=== PATIENT | female | born 1995 | race Caucasian/White ===

== ENCOUNTER → 2017-02-09 | Outpatient (CLI) | payer SELFPAY ==
--- NOTE | 2017-02-09 16:58 | RADIOLOGY REPORT (SQ) ---
EXAM DESCRIPTION: U/S FG0NOAX TRNABD 1GES W/ODOP COMPLETED DATE/TIME: 02/09/2017 4:23 pm REASON FOR STUDY: SIZE AND DATES Z34.01 ENCNTR FOR SUPRVSN OF NORMAL FIRST PREG, FIRST TRIMES COMPARISON: None. TECHNIQUE: Transabdominal static and realtime grayscale images acquired of the pelvis. Additional se lected spectral and color Doppler images recorded. All images stored on PACs. bHCG: Not applicable. LIMITATIONS: None. FINDINGS: FETUS: Living intrauterine . EGA: 11 week 6 day. JOSUE: 08/25/2017. FHR: 160 beats per minute. SUBCHORIONIC BLEED: No. SIZE OF BLEED: Not applicable. UTERUS: No masses. No anomalies. CERVICAL LENGTH: 3.0 cm. Closed. RIGHT ADNEXA: Ovary not identified. No adnexal free fluid. No adnexal masses. LEFT ADNEXA: Ovary not identified. No adnexal free fluid. No adnexal masses. FREE FLUID: None. OTHER: No other significant finding. IMPRESSION: LIVING INTRAUTERINE . EGA 11 WEEK 6 DAY. Trimester of : First - 0 to 13 weeks. TECHNICAL DOCUMENTATION: JOB ID: [id number] [employer]- All Rights Reserved
== END ==
LOC: RAD 15:48
PROVIDERS: ATTEND Nurse Practitioner Women's Health
DX: Z34.01 Encounter for supervision of normal first pregnancy, first trimester (principal)
CPT/HCPCS: 76801

== ENCOUNTER 2017-08-09 15:07 | Inpatient (IN) | payer BC, MEDICAID ==
[2017-09-03] MEDS ORDERED: DINOPROSTONE 10 MG VAGINAL INSERT.SR PV PRN (18:43)
[2017-09-03] MEDS ORDERED: RINGERS SOLUTION,LACTATED 1,000 ML IV PRN (18:43)
[2017-09-03] MEDS ORDERED: DINOPROSTONE 10 MG VAGINAL INSERT.SR ONE (19:09)
[2017-09-03 19:22] LABS: ABSOLUTE EOSINOPHILS # (AUTO) 0.1 10^3/uL (0.0-0.6); ABSOLUTE LYMPHOCYTES (AUTO) 1.7 10^3/uL (0.5-4.7); ABSOLUTE MONOCYTES (AUTO) 0.8 10^3/uL (0.1-1.4); ABSOLUTE NEUT (AUTO) 8.1 10^3/uL (1.7-8.2); BASOPHILS % (AUTO) 0.2 % (0-2); EOSINOPHILS % (AUTO) 1.2 % (0-6); HEMATOCRIT 30.6 % (36.0-47.0); HEMOGLOBIN 10.6 g/dL (12.0-15.5); LYMPHOCYTES % (AUTO) 15.8 % (13-45); MEAN CORPUSCULAR HGB CONC 34.7 g/dL (32.0-36.0); MEAN CORPUSCULAR VOLUME 87 fl (80-97); MONOCYTES % (AUTO) 7.5 % (3-13); PLATELET COUNT 309 10^3/uL (150-450); RED BLOOD COUNT 3.54 10^6/uL (3.72-5.28); RED CELL DISTRIBUTION WIDTH 14.6 % (11.5-14.0); SEGMENTED NEUTROPHILS % (AUTO) 75.3 % (42-78); TOTAL CELLS COUNTED % (AUTO) 100 %; WHITE BLOOD COUNT 10.8 10^3/uL (4.0-10.5)
[2017-09-03 19:25] LABS: APPEARANCE,URINE SLIGHTLY-CLOUDY; BILIRUBIN,URINE NEGATIVE (NEGATIVE); COLOR,URINE YELLOW; GLUCOSE, URINE NEGATIVE (NEGATIVE); KETONES,URINE NEGATIVE (NEGATIVE); LEUKOCYTE ESTERASE,URINE MODERATE (NEGATIVE); NITRITE,URINE NEGATIVE (NEGATIVE); PROTEIN,URINE NEGATIVE (NEGATIVE); URINE SPECIFIC GRAVITY 1.009; UROBILINOGEN,URINE NEGATIVE mg/dL (<2.0)
[2017-09-03 19:39] LABS: URINE AMPHETAMINES SCREEN NEGATIVE; URINE BARBITURATES SCREEN NEGATIVE; URINE BENZODIAZEPINES SCREEN NEGATIVE; URINE COCAINE SCREEN NEGATIVE; URINE MARIJUANA (THC) SCREEN NEGATIVE; URINE METHADONE SCREEN NEGATIVE; URINE PHENCYCLIDINE SCREEN NEGATIVE
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
[2017-09-04] MEDS ORDERED: OXYTOCIN/NORMAL SALINE 40 UNIT/2,000 ML RTUINJ ONE (08:24)
[2017-09-04] MEDS ORDERED: LIDOCAINE 1% INJ-PF (10 MG/ML) 30 ML SDV ONE (08:24)
[2017-09-04] MEDS ORDERED: MISOPROSTOL 0.2 MG TABLET ONE ×2 (08:24→21:36)
--- NOTE | 2017-09-04 08:29 | L&D Progress Notes ---
PROGRESS NOTES Datetime Report Generated by CPN: 09/04/2017 08:28 PROGRESS NOTE Impression: Reassuring Heart Rate Plan: Continue Present Management Informed Consent Obtained: Vaginal Delivery Vital Signs : Reviewed; Within Normal Limits Comment: Sitting up in bed, hsb at BS, plans to breastfeed and get epidural, Cat 1 strip, no uc's, POC discussed. Will start Pitocin, 41+2 VAGINAL EXAM Dilatation: 0 Effacement: 0 Station: -3 MEMBRANES Pooling: Negative Membranes: Intact FETUS A FHR - Baseline: 125 Monitoring: External US Variability: Moderate 6-25bpm Accelerations: 10X10 Decelerations: None : 41.2 Estimated Weight (gm): 3800 Presentation: Vertex SIGNATURE SIGNATURE: ,[id number];,[id number];,[id number] SIGNATURE: ,[id number];,[id number] SIGNATURE: [id number] Assignment: Marcus Mcbride MD Signature: with User ID: [email or web address] : with User ID: [email or web address]
--- NOTE | 2017-09-04 13:15 | L&D Progress Notes ---
PROGRESS NOTES Datetime Report Generated by CPN: 09/04/2017 13:15 PROGRESS NOTE Impression: Reassuring Heart Rate Plan: Continue Present Management; Induction Informed Consent Obtained: Vaginal Delivery Vital Signs : Reviewed; Within Normal Limits Comment: Cat 1 strip, not feeling uc's, Continue Pitocin FETUS C SIGNATURE: 13,[id number];14,[id number];10,[id number] Assignment: Marcus Mcbride MD Signature: with User ID: [email or web address] : with User ID: [email or web address]
--- NOTE | 2017-09-04 14:44 | L&D Progress Notes ---
PROGRESS NOTES Datetime Report Generated by CPN: 09/04/2017 14:44 PROGRESS NOTE Impression: Normal Progression of Labor; Reassuring Heart Rate Procedures: Artificial ROM; Sterile Vag Exam Plan: Continue Present Management; Induction Informed Consent Obtained: Vaginal Delivery Vital Signs : Reviewed; Within Normal Limits Comment: VE 4/80/vtx/0, AROM clear fluid, Cat 1 strip, tolerating labor well MEMBRANES Membranes: Ruptured Amniotic Fluid Color: Clear FETUS A Decelerations: None FETUS C SIGNATURE: 10,[id number];14,[id number];13,[id number] Assignment: Marcus Mcbride MD Signature: with User ID: Andrea : with User ID: [email or web address]
[2017-09-04] MEDS ORDERED: EPHEDRINE SULFATE INJ 50 MG/1 ML AMPULE ONE (15:55)
[2017-09-04] MEDS ORDERED: BUPIVACAINE HCL 0.25 % INJ/PF (2.5 MG/1 ML) 30 ML VIAL ONE (15:56)
[2017-09-04] MEDS ORDERED: FENTANYL/BUPIVACAINE/NS/PF 200 MCG/100 ML RTUINJ EPI ONE (15:56)
--- NOTE | 2017-09-04 16:53 | L&D Progress Notes ---
PROGRESS NOTES Datetime Report Generated by CPN: 09/04/2017 16:53 PROGRESS NOTE Comment: requesting epidural, Fluid bolus and Dr. Cheken here, Cat 1 strip FETUS C SIGNATURE: 13,[id number];14,[id number];10,[id number] Assignment: Marcus Mcbride MD Signature: with User ID: [email or web address] : with User ID: [email or web address]
[2017-09-04] MEDS ORDERED: GLYCERIN/WITCH HAZEL LEAF 1 EACH MED..PAD TP PRN (20:26)
[2017-09-04] MEDS ORDERED: PROMETHAZINE HCL 25 MG SUPP.RECT PR PRN (20:26)
[2017-09-04] MEDS ORDERED: PROMETHAZINE HCL INJ 25 MG/1 ML VIAL IV PRN (20:26)
[2017-09-04] MEDS ORDERED: DIPH/PERTUSS(ACELL)/TETANUS VAC/PF 0.5 ML SYR (>=10YO) IM PRN (20:26)
[2017-09-04] MEDS ORDERED: DIBUCAINE 1% OINTMENT 28 GM TP PRN (20:26)
[2017-09-04] MEDS ORDERED: PROMETHAZINE HCL 25 MG TABLET PO PRN (20:26)
[2017-09-04] MEDS ORDERED: DIPHENHYDRAMINE HCL 25 MG CAPSULE PO PRN (20:26)
[2017-09-04] MEDS ORDERED: OXYTOCIN/NORMAL SALINE 20 UNIT/1,000 ML RTUINJ IV PRN (20:26)
[2017-09-04] MEDS ORDERED: ZOLPIDEM TARTRATE 5 MG TABLET PO PRN (20:26)
[2017-09-04] MEDS ORDERED: MEASLES,MUMPS&RUBELLA VACC/PF 0.5 ML VIAL SUBCUT PRN (20:26)
[2017-09-04] MEDS ORDERED: PSEUDOEPHEDRINE HCL 30 MG TABLET PO PRN (20:26)
[2017-09-04] MEDS ORDERED: ACETAMINOPHEN WITH CODEINE #3 TABLET PO PRN (20:26)
[2017-09-04] MEDS ORDERED: BENZOCAINE/MENTHOL AEROSOL SPRAY 56 ML TOP PRN (20:26)
[2017-09-04] MEDS ORDERED: ACETAMINOPHEN 650 MG SUPP.RECT PR PRN (20:26)
[2017-09-04] MEDS ORDERED: NA PHOS,M-B/NA PHOS,DI-BA (ADULT) 133 ML ENEMA PR PRN (20:26)
[2017-09-04] MEDS ORDERED: MAGNESIUM HYDROXIDE SUSP 30 ML UDCUP PO PRN (20:26)
--- NOTE | 2017-09-04 21:47 | Warning Signs in Babies ---
VOD Warning Signs Datetime Report Generated by [facility]: 09/04/2017 21:47 VOD#608 -Warning Signs in Babies: Needs to be viewed. (08/28/2017 16:04:Irwin Cardoso)
[2017-09-05] MEDS: IBUPROFEN 800 MG TABLET PO SCH ×4 (00:44→22:10)
[2017-09-05] MEDS: FAMOTIDINE 20 MG TABLET PO SCH ×3 (00:45→22:10)
[2017-09-05 07:31] LABS: HEMATOCRIT 26.9 % (36.0-47.0); HEMOGLOBIN 9.1 g/dL (12.0-15.5); MEAN CORPUSCULAR HEMOGLOBIN 29.5 pg (27.0-33.4); MEAN CORPUSCULAR HGB CONC 33.7 g/dL (32.0-36.0); MEAN CORPUSCULAR VOLUME 87 fl (80-97); PLATELET COUNT 239 10^3/uL (150-450); RED BLOOD COUNT 3.08 10^6/uL (3.72-5.28); RED CELL DISTRIBUTION WIDTH 14.8 % (11.5-14.0); WHITE BLOOD COUNT 12.5 10^3/uL (4.0-10.5)
[2017-09-05] MEDS: FERROUS SULFATE 325 MG TABLET PO SCH ×2 (10:24→17:51)
[2017-09-05] MEDS: PRENATAL VITAMIN W DHA CAPSULE PO SCH (10:24)
[2017-09-05] MEDS: SENNOSIDES/DOCUSATE 8.6-50 MG 1 EACH TABLET PO SCH (10:24)
[2017-09-05] MEDS: DOCUSATE SODIUM 100 MG CAPSULE PO SCH ×2 (10:24→17:51)
--- NOTE | 2017-09-05 12:19 | PDOC PROGRESS REPORT ---
Subjective-OB Progress Note for:: 09/05/17 Subjective: tolerating diet, bleeding slowing, pain controlled with current meds. denies needs. Physical Exam (OB) Vital Signs: Temp Pulse Resp BP Pulse Ox 98.3 F 67 20 101/52 L 98 09/05/17 10:16 09/05/17 10:16 09/05/17 10:16 09/05/17 07:49 09/05/17 10:16 Intake & Output 09/04/17 09/05/17 09/06/17 06:59 06:59 06:59 Weight 78.8 kg - Abdomen Description: Soft, Round Hernia Present: No Fundal Description: Firm, Midline Fundal Height: u/u - u/2 - Abdominal Tenderness: Nontender - Extremities Lower extremities: Shubham's sign - neg Ankle: Normal, Nontender Objective-Diagnostic Laboratory: 09/05/17 06:55 09/05/17 06:55 WBC 12.5 H RBC 3.08 L Hgb 9.1 L Hct 26.9 L MCV 87 MCH 29.5 MCHC 33.7 RDW 14.8 H Plt Count 239 Assessment and Plan(PN) - Assessment and Plan (1) Vaginal delivery Is this a current diagnosis for this admission?: Yes - Time Spent with Patient Time with patient: Less than 15 minutes Medications reviewed and adjusted accordingly: Yes - Disposition Anticipated Discharge: Home Within: within 24 hours
[2017-09-06] MEDS: IBUPROFEN 800 MG TABLET PO SCH (05:59)
[2017-09-06] MEDS: FERROUS SULFATE 325 MG TABLET PO SCH (09:11)
[2017-09-06] MEDS: PRENATAL VITAMIN W DHA CAPSULE PO SCH (09:11)
[2017-09-06] MEDS: DOCUSATE SODIUM 100 MG CAPSULE PO SCH (09:11)
[2017-09-06] MEDS: FAMOTIDINE 20 MG TABLET PO SCH (09:12)
[2017-09-06] MEDS: SENNOSIDES/DOCUSATE 8.6-50 MG 1 EACH TABLET PO SCH (09:12)
--- NOTE | 2017-09-06 09:19 | PDOC DISCHARGE SUMMARY ---
Final Diagnosis Discharge Date: 09/06/17 Discharge Data - Discharge Medication Home Medications: Ferrous Sulfate [Iron] 325 mg PO DAILY 08/28/17 No122/Iron/Folic Acid [ Multi Tablet] 1 tab PO DAILY 08/28/17 Reason(s) for Admission: Induction of Labor Procedures: NST, Ultrasound Intrapartum Procedure(s): Spontaneous Vaginal Delivery - Diagnosis Test Laboratory: Temp Pulse Resp BP Pulse Ox 97.7 F 71 17 119/67 100 09/06/17 08:06 09/06/17 08:06 09/06/17 08:06 09/06/17 08:06 09/06/17 08:06 09/03/17 09/03/17 09/05/17 18:42 19:05 06:55 RBC 3.54 L 3.08 L Hgb 10.6 L 9.1 L Hct 30.6 L 26.9 L Urine Opiates Screen NEGATIVE - Discharge information/Instructions Discharge Activity: Activity As Tolerated Discharge Diet: Regular Disposition: HOME, SELF-CARE Follow up with: [facility] in: 4
[2017-09-06 12:45] VITALS: BP 108/48
--- NOTE | 2017-09-14 18:55 | Delivery Summary ---
Del Sum A-C Datetime Report Generated by CPN: 09/14/2017 18:55 DELIVERY PERSONNEL DELIVERY PERSONNEL: [id number] Delivery Doctor:: Marcus Mcbride MD Labor and Delivery Nurse:: Irwin Cardoso RN Labor and Delivery Nurse:: Maria R Eason RN Cardiac Care Nurse/GAME OPERATOR: Karina Irvin, ST Cardiac Care Nurse/GAME OPERATOR: Eduarda Martinez, ST MATERNAL INFORMATION Delivery Anesthesia: Epidural Medications After Delivery: Pitocin Bolus-Please Comment; Pitocin Drip 20 Units/1000ml NSS Maternal Complications: None Complication Details: Suprapubic pressure applied during delivery. Less than 1 minute. LABOR SUMMARY EDC: 08/26/2017 00:00 No. Babies in Womb: 1 Attempted: No Labor Anesthesia: Epidural LABOR INFORMATION Reason for Induction: Post Dates Onset of Labor: 09/04/2017 14:47 Complete Dilatation: 09/04/2017 19:39 Cervical Ripening Agents: Cervidil Oxytocin: Induction Group B Beta Strep: negative Antibiotics # of Doses: 0 Antibiotics Time of Last Dose: n/a Name of Antibiotic Given: n/a Steroids Given: None Reason Steroids Not Administered: Not Applicable Other Reason Not Administered: n/a MEMBRANES Membranes Rupture Method: Artificial Rupture of Membranes: 09/04/2017 14:48 Rupture of Membranes: 09/04/2017 14:48 Length of Rupture (hr): 5.45 Length of Rupture (hr): 5.45 Amniotic Fluid Color: Clear Amniotic Fluid Amount: Moderate Amniotic Fluid Odor: Normal STAGES OF LABOR Stage 1 hr: 4 Stage 1 min: 52 Stage 2 hr: 0 Stage 2 min: 36 Stage 3 hr: 0 Stage 3 min: 3 Total Time in Labor hr: 5 Total Time in Labor min: 31 VAGINAL DELIVERY Episiotomy: None Laceration #1: Vaginal Laceration Extension #1: First Degree Laceration Repair: Yes Laceration Repair Note: one figure of eight suture for vaginal repair Sponge Count Correct: N/A Sharps Count Correct: Yes CSECTION DELIVERY Primary Indication: N/A Secondary Indication: N/A CSection Incidence: N/A Labor: N/A Elective: N/A CSection Incision: N/A BABY A INFORMATION Delivery Date/Time: 09/04/2017 20:15 Method of Delivery: Vaginal Born in Route : No : N/A Forceps: N/A Vacuum Extraction: N/A Shoulder Dystocia : No PRESENTATION/POSITION BABY A Presentation: Cephalic Cephalic Presentation: Vertex Breech Presentation: N/A PLACENTA INFORMATION BABY A Placenta Delivery Time : 09/04/2017 20:18 Placenta Method of Delivery: Spontaneous Placenta Status: Delivered SCORES BABY A Heart Rate 1 min: >100 bpm Resp Effort 1 min: Good Cry Reflex Irritability 1 min: Cough or Sneeze or Pulls Away Muscle Tone 1 min: Some Flexion of Extremities Color 1 min: Blue/Pale Resuscitation Effort 1 min: Tactile Stimulation SCORE 1 MIN: 7 Heart Rate 5 min: >100 bpm Resp Effort 5 min: Good Cry Reflex Irritability 5 min: Cough or Sneeze or Pulls Away Muscle Tone 5 min: Active Motion Color 5 min: Body [place], Extremities Blue Resuscitation Effort 5 min: Tactile Stimulation SCORE 5 MIN: 9 INFANT INFORMATION BABY A Gestational Age at Delivery: 41.2 Gestational Status: Late Term- 41- 41.6 Weeks Outcome : Liveborn Condition : Stable Infant Sex: Female IDENTIFICATION BABY A Verification Date/Time: 09/04/2017 20:32 ID Band Number: [id number] Mother's Name Verified: Yes Infant RN Verifying Infant: SRand Torrestibgraysonir, RNC _ B. Jenaro, RN WEIGHT/LENGTH BABY A Birthweight (gm): 3920 Infant Weight (lb): 8 Weight (oz): 10 Length (in): 21.50 Length (cm): 54.61 CORD INFORMATION BABY A No. Cord Vessels: 3 Nuchal Cord : N/A Cord Blood Taken: Yes-For Storage (Mom's Blood type +) Infant Suction: Mouth; Nose ASSESSMENT BABY A Complications: None Physical Findings at Delivery: Within Normal Limits Skin to Skin: Yes Nat Instructor/ALS Called : No Care By: Rosemary Lucia RN Transferred To: Nursery BABY B INFORMATION : N/A
== END 2017-09-06 13:58 | disposition home or self-care (01) | DRG 775 ==
LOC: LR 09-03 18:29 → 2S 09-04 22:39
PROVIDERS: ADMIT Obstetrics & Gynecology; ATTEND Obstetrics & Gynecology
PROC: 10E0XZZ Delivery of Products of Conception, External Approach (ICD-10-PCS; principal; 2017-09-03)
PROC: 0HQ9XZZ Repair Perineum Skin, External Approach (ICD-10-PCS; 2017-09-03)
PROC: 3E0P7VZ Introduction of Hormone into Female Reproductive, Via Natural or Artificial Opening (ICD-10-PCS; 2017-09-03)
PROC: 3E033VJ Introduction of Other Hormone into Peripheral Vein, Percutaneous Approach (ICD-10-PCS; 2017-09-03)
PROC: 10907ZC Drainage of Amniotic Fluid, Therapeutic from Products of Conception, Via Natural or Artificial Opening (ICD-10-PCS; 2017-09-03)
PROC: 4A1HXCZ Monitoring of Products of Conception, Cardiac Rate, External Approach (ICD-10-PCS; 2017-09-03)
DX: O48.0 Post-term pregnancy (principal); O70.0 First degree perineal laceration during delivery; Z87.891 Personal history of nicotine dependence; Z3A.41 41 weeks gestation of pregnancy; Z37.0 Single live birth
CPT/HCPCS: 36415; 80307; 81005; 85025; 85027; 86592; 86850; 86900; 86901; 94760; J2590; J3490

== ENCOUNTER 2017-08-28 15:50 | Outpatient (CLI) | payer MEDICAID ==
--- NOTE | 2017-08-28 16:42 | Non Stress Test Report ---
Non Stress Test Datetime Report Generated by CPN: 08/28/2017 16:42 DEMOGRAPHIC EGA NST: 40.2 INDICATION Indication for Study: Ordered by Provider MONITORING Monitor Explained: Monitor Explained; Test Explained; Patient Verbalized Understanding Time on Monitor: 08/28/2017 16:01 Time off Monitor: 08/28/2017 16:37 NST Duration: 36 NST INTERVENTIONS NST Interventions: PO Hydration; Reposition Patient Physician Notified NST: C.Rodríguez, CNM BABY A: [id number] BABY A Movement : Present Contraction Frequency : None FHR Baseline : 125 Accelerations : 15X15 Decelerations : None Variability : Moderate 6-25bpm NST Review: Meets Criteria for Reactive NST NST Review and Verified By : Josh Funez RNC NST Results: Reactive NST REPORT Report Trigger: Send Report
== END 2017-08-28 16:41 | disposition home or self-care (01) ==
LOC: LC 15:50
PROVIDERS: ATTEND Obstetrics & Gynecology
PROC: 4A1HXCZ Monitoring of Products of Conception, Cardiac Rate, External Approach (ICD-10-PCS; principal; 2017-08-28)
DX: O48.0 Post-term pregnancy (principal); Z3A.40 40 weeks gestation of pregnancy
CPT/HCPCS: 59025